=== PATIENT | male | born 1980 | race Caucasian/White ===

== ENCOUNTER → 2018-06-09 | Outpatient (CLI) | payer BC ==
[~2018-06-09] MED LIST: GADOBUTROL 10 MMOL/10 ML VIAL IV ONE; INSU100I13 SQ; LEVO150T5 PO; MELO15TA6 PO; METF-154 PO
--- NOTE | 2018-06-09 11:38 | KCIC ---
MR of the second finger HISTORY: Mass for 2 months. TECHNIQUE: Routine multiplanar sequences are obtained through the second finger before and after intravenous contrast. FINDINGS: There is a small soft tissue mass at the posterior and medial aspect of the second finger, corresponds with the location of the marker which was placed at the area of concern. The mass is at the level of the second PIP joint. Measures 7 mm x 4 mm x 6 mm. Demonstrates mildly increased heterogeneous T2 signal and mild heterogeneous enhancement. The mass contacts the ulnar collateral ligament of the second PIP joint appears intact. Flexor and extensor tendons are intact. No bone destruction or marrow edema. Mild cystic change within the lateral head of the proximal second phalanx. No acute fracture. No significant joint effusion. IMPRESSION: Solid appearing soft tissue mass at the level of the second PIP joint. Nonspecific, but common etiologies would include fibrous histiocytoma or giant cell tumor of the tendon sheath. Malignant etiology would be much less likely. Foreign body granuloma could be considered. Electronically signed by: Patrick Wilde MD (06/09/2018 11:35 AM) [id number]
== END | disposition home or self-care (01) ==
LOC: KCIC MRI 08:07
PROVIDERS: ATTEND Orthopaedic Surgery Sports Medicine
DX: R22.31 Localized swelling, mass and lump, right upper limb (principal)
CPT/HCPCS: 73220; 82565; A9585